=== PATIENT | male | born 1965 | race Caucasian/White ===

== ENCOUNTER 2018-03-23 19:09 | Emergency (ER) | payer OTHER ==
[~2018-03-23] VITALS: Ht 180.3 cm; Wt 86.2 kg
[2018-03-23] MEDS ORDERED: TILENOR (19:21)
[2018-03-23] MEDS ORDERED: ADVIL100 M1 (19:22)
== END 2018-03-23 23:46 | disposition home or self-care (01) ==
LOC: ER 19:09
DX: B34.9 Viral infection, unspecified (principal)

== ENCOUNTER 2019-04-10 11:04 | Emergency (ER) | payer OTHER ==
[~2019-04-10] VITALS: Ht 177.8 cm; Wt 86.2 kg
[~2019-04-10 11:04] MED LIST: ADVIL100 M1; TILENOR
== END 2019-04-10 16:26 | disposition home or self-care (01) ==
LOC: ER 11:04
DX: N20.0 Calculus of kidney (principal); J06.9 Acute upper respiratory infection, unspecified

== ENCOUNTER 2020-09-27 08:00 | Outpatient (CLI) | payer OTHER | END 2020-09-27 08:30 | disposition home or self-care (01) | LOC: PPH VACUNA 08:00 | DX: Z23 Encounter for immunization (principal) ==